=== PATIENT | female | born 1960 | race Hispanic/Latino ===

== ENCOUNTER 2017-03-07 18:15 | Emergency (ER) | payer OTHER ==
[~2017-03-07] VITALS: Ht 149.9 cm; Wt 59.1 kg
[2017-03-07 18:26] VITALS: BP 134/77; PULSE 80; RESP 16; O2SAT 99
--- NOTE | 2017-03-07 18:27 | ED.REPORT ---
HPI-Extremity Problem Upper Date of Service Mar 07, 2017 ED Provider: Onur Alejandro Patient is a 56 year old female who presents to the ED complaining of R shoulder pain onset this evening. She was vacuuming when she felt a "click" in her shoulder followed by pain. She previously injured her shoulder while at work and was told she had a small fracture. Associated symptoms include R sided neck pain. She denies numbness, swelling, or any other symptoms. Nursing Notes Stated Complaint: RIGHT SHOULDER PAIN Chief Complaint: Extremity Trauma Nursing Notes Reviewed: Yes Allergies: Coded Allergies: No Known Allergies (Verified Allergy, Unknown, 03/07/17) General Time Seen by MD: 18:27 Chief Complaint Shoulder injury right Hx Obtained From: Patient Arrived By: Walk-in Onset Occurred: Just prior to arrival Symptom Duration: Since onset Similar Sx Previous: Yes Past Medical History Past Medical History Reports: Diabetes mellitus Past Surgical History Reports: Cholecystectomy Reports: Tubal ligation Smoking History Former Smoker Social History Other Social History: Good social support, , Local resident Ambulatory Status Independent Review of Systems Musculoskeletal: Reports: Joint pain, Neck pain, Denies: Extremity swelling, Joint swelling Complete sys rev & neg: except as marked. Physical Exam Initial Vital Signs Vital Signs (First) Date Time Temp Pulse Resp B/P Pulse Ox O2 Delivery O2 Flow Rate FiO2 03/07/17 18:26 36.7 80 16 134/77 99 Room Air Initial VS: Reviewed, Vital signs normal General/Constitutional: Well-developed, Well-nourished Head / Eyes: Atraumatic, Normocephalic Neck: Full range of motion Respiratory: No respiratory distress Cardiovascular: Intact distal pulses Abdomen / GI: Soft, Non-tender Skin: Warm, Dry Neurologic: Alert, Oriented, Nonfocal Psychiatric: Mood/affect normal, Behavior normal, Normal thought content Upper Extremity / MS: No swelling, No erythema, No deformity Right Shoulder: Positive: Tenderness present... Pulses intact. Hand motor intact. Limited Abduction secondary to pain. External rotation diminished beyond midline secondary to pain Interpretation & Diagnostics X-Ray Interpretation Xray Interpretation: IMPRESSION: No trauma found. Mild arthritic change at the a.c. joint. Dictated by: Joshua Dow M.D. on 03/07/2017 at 19:32 Approved by: Joshua Dow M.D. on 03/07/2017 at 19:32 X-Ray Ordered: Shoulder right Interpretation / Wet Read by: Interpret - Radiologist Procedures Splint Application - Fx Mgt Time: 20:42 Procedure Performed by: Pictures Editor Type of Immobilization: Sling Post-Procedure / Complications: Cap refill normal, Post splint vascular nl, Post splint neuro nl, Tolerated procedure well, Patient stable Splint Post-Application Eval Extremity Condition: Cap refill < 2 sec, Distal sensation intact, Distal motor Intact, No compartment syndrome Re-Eval/Medical Decision Re-Evaluation/Progress : Time of Eval: 20:33 Re-Evaluation/Progress Note: Rechecked patient. Discussed plan for discharge. Patient understands and agrees with plan. All questions addressed at this time. Counseled Regarding: Diagnosis, Lab results, Need for follow-up, When/why to return to ED Discharge & Departure Impression: Primary Impression: Right shoulder pain Chronicity: unspecified Qualified Code: M25.511 - Pain in right shoulder Disposition: Home Discharge Condition All VS Reviewed: Yes Condition: Stable Additional Instructions: Keep the right shoulder in the immobilizer with the exception of removing to do gentle range of motion by hanging down and doing a hughes with wrist 1-2 times daily. No use of right arm at work 5 days, follow up with Dr James before being cleared to return to use. Ibuprofen 600 mg 3 times a day take with food. May use hydrocodone one every 4-6 hours as needed for severe pain. Referrals: Tyler Heller MD (PCP) Raymond Jamesibbarrie Attestation Portions of this note were transcribed by Celeste Ruiz. I, Dr. Alejandro personally performed the history, physical exam and medical decision-making; I reviewed and confirmed the accuracy of the information in the transcribed note. Signed by: Celeste Ruiz 03/07/172042 copies to: Raymond James Donald L MD Mar 07, 2017 18:27 CELESTE RUIZ Mar 07, 2017 18:34
[2017-03-07] MEDS ORDERED: HYDROcodone-APAP 5-325 mg Tablet PO ONE (18:30)
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
[2017-03-07] MEDS ORDERED: _HYDROcodone/APAP 5-325 mg Tablet PO PRN (20:40)
[2017-03-07 21:46] VITALS: BP 133/60; PULSE 66; RESP 18; O2SAT 99
== END 2017-03-07 21:48 | disposition home or self-care (01) ==
LOC: SED 18:15
DX: M25.511 Pain in right shoulder (principal); M54.2 Cervicalgia; X58.XXXA Exposure to other specified factors, initial encounter; Y93.E3 Activity, vacuuming; Y99.8 Other external cause status; Y92.9 Unspecified place or not applicable; E11.9 Type 2 diabetes mellitus without complications; Z87.891 Personal history of nicotine dependence

== ENCOUNTER 2017-04-17 14:24 | Emergency (ER) | payer OTHER ==
[~2017-04-17] VITALS: Ht 149.9 cm; Wt 59.1 kg
[2017-04-17 14:55] VITALS: BP 147/82; PULSE 86; RESP 15; O2SAT 99
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
[2017-04-17] MEDS ORDERED: HYDROcodone-APAP 5-325 mg Tablet PO ONE (16:25)
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
[2017-04-17] MEDS ORDERED: HYDR-4003 PO (17:21)
[2017-04-17 17:37] VITALS: BP 139/83; PULSE 68; RESP 18; O2SAT 98
== END 2017-04-17 17:41 | disposition home or self-care (01) ==
LOC: SED 14:24
DX: S16.1XXA Strain of muscle, fascia and tendon at neck level, initial encounter (principal); S39.012A Strain of muscle, fascia and tendon of lower back, initial encounter; V43.52XA Car driver injured in collision with other type car in traffic accident, initial encounter; Y93.89 Activity, other specified; Y99.8 Other external cause status; E11.9 Type 2 diabetes mellitus without complications; Z87.891 Personal history of nicotine dependence